=== PATIENT | male | born 1960 | race Caucasian/White ===

== ENCOUNTER 2018-05-31 18:22 | Emergency (ER) | payer BC ==
[2018-05-31 18:30] VITALS: PULSE 74; TEMP 97.7; BMI 29.0
--- NOTE | 2018-05-31 18:52 | PDOC ---
History of Present Illness - General Chief Complaint: Headache Stated Complaint: HEADACHE Time Seen by Provider: 05/31/18 18:44 History Source: Patient Exam Limitations: No Limitations - History of Present Illness Initial Comments: 05/31/18 18:45 57 year old man with prior history of migraine (age 10-13) who presents with 2 days of throbbing R sided headache around the eye and buddhist that onset 1 day ago while he was drilling a hole in his yard. The headache has been intermittent but the patient was able to sleep. This AM the patient has had decreased appetite and with worsening of the headache today at 1400. The patient 's headache worsens with bright lights and loud noises. He denies nausea, chest pain, diaphoresis. Denies tearing, runny nose or neck pain with the headache. Denies shortness of breath or fever. Denies recent travel, but notes possible sick contacts with his grandchildren. He reports his blood pressure is baseline 120/80s. Denies visual changes or ringing in the ears. Prior to arrival he took Sumatriptan at 4:30pm and 600 Ibuprofen at 5:45pm, with minimal relief as reported at 6:30pm. PCP: Marlo Past History - Past Medical History Allergies/Adverse Reactions: Allergies Allergy/AdvReac Type Severity Reaction Status Date / Time No Known Allergies Allergy Verified 05/31/18 18:25 Home Medications: Ambulatory Orders Ibuprofen 600 mg PO ASDIR 05/31/18 Sumatriptan Succinate [Imitrex] 100 mg PO ASDIR 05/31/18 Anemia: No COPD: No Other medical history: h/o migraine headaches - Immunization History Td Vaccination: (2009) - Suicide/Smoking/Psychosocial Hx Smoking Status: No Smoking History: Never smoked Have you smoked in the past 12 months: No Number of Cigarettes Smoked Daily: 0 Cigars Per Day: 0 Information on smoking cessation initiated: No Hx Alcohol Use: No Review of Systems - Review of Systems Able to Perform ROS?: Yes Is the patient limited Chadian proficient: No Constitutional: No: Chills, Diaphoresis, Fever HEENTM: No: Eye Pain, Blurred Vision, Tearing, Ear Pain, Nose Congestion, Tinnitus Respiratory: No: Cough, Orthopnea, Shortness of Breath Cardiac (ROS): No: Chest Pain, Palpitations, Syncope ABD/GI: No: Constipated, Diarrhea, Nausea, Vomiting : No: Burning, Dysuria, Hematuria Neurological: Yes: Headache. No: Numbness, Paresthesia, Tingling *Physical Exam - Vital Signs Last Vital Signs Temp Pulse Resp BP Pulse Ox 97.7 F 74 18 172/104 H 97 18 18:22 1218 18:22 1218 18:22 05/31/18 18:22 12 18:22 - Physical Exam Comments: GENERAL: Awake, alert, and fully oriented, in no acute distress HEAD: No signs of trauma, normocephalic, atraumatic EYES: PERRLA, EOMI, sclera anicteric, conjunctiva clear ENT: Auricles normal inspection, hearing grossly normal, nares patent, oropharynx clear without exudates. Moist mucosa NECK: Normal ROM, supple, no lymphadenopathy, JVD, or masses LUNGS: No distress, speaks full sentences, clear to auscultation bilaterally HEART: Regular rate and rhythm, normal S1 and S2, no murmurs, rubs or gallops, peripheral pulses normal and equal bilaterally. ABDOMEN: Soft, nontender, normoactive bowel sounds. No guarding, no rebound. No masses EXTREMITIES : Normal inspection, Normal range of motion, no edema. No clubbing or cyanosis. NEUROLOGICAL: Cranial nerves II through XII intact, cerebellar function intact. Normal speech, normal gait, no focal sensorimotor deficits SKIN: Warm, Dry, normal turgor, no rashes or lesions noted Moderate Sedation - Procedure Monitoring Vital Signs: Procedure Monitoring Vital Signs Temperature 97.7 F 05/31/18 18:22 Pulse Rate 74 05/31/18 18:22 Respiratory Rate 18 05/31/18 18:22 Blood Pressure 172/104 H 05/31/18 18:22 O2 Sat by Pulse Oximetry (%) 97 05/31/18 18:22 Medical Decision Making - Medical Decision Making 05/31/18 18:53 57 year old man with prior history of migraine (age 10-13) who presents with 2 days of throbbing R sided headache around the eye and buddhist that onset 1 day ago while he was drilling a hole in his year. The headache has been intermittent but the patient was able to sleep. This AM the patient has had decreased appetite and with worsening of the headache today at 1400. The patient 's headache worsens with bright lights and loud noises. He denies nausea, chest pain, diaphoresis. Denies tearing, runny nose or neck pain with the headache. Denies shortness of breath or fever. Denies recent travel, but notes possible sick contacts with his grandchildren. He reports his blood pressure is baseline 120/80s. Denies visual changes or ringing in the ears. ED Course: Patient history consistent with migraine with unilateral throbbing headache < 72 hours. Consider cervicogenic headache, tension headache. Will evaluate with EKG due to complaints of chest discomfort for the past 30- 40min. With elevation in BP from baseline will recheck. No neurological deficit concerning for stroke or brain bleed. Will observe and consider additional medications. 05/31/18 18:57 Repeat 138/83. 05/31/18 19:00 Patient signed out to oncoming team. Attending Dr. Joy. *DC/Admit/Observation/Transfer - Discharge Dispostion Condition at time of disposition: Stable - Referrals Referrals: Natalie Sellers MD [Primary Care Provider] - - Patient Instructions - Post Discharge Activity
[2018-05-31 19:00] VITALS: BP 138/86
--- NOTE | 2018-05-31 19:45 | PDOC ---
History of Present Illness - History of Present Illness Initial Comments: 05/31/18 19:46 The patient is a 57 year old male, who presents to the emergency department with right sided headache beginning approx 4 hours ago. The patient states the headache is located on the top right side of his head around the catholic/right eye, described as a squeezing pressure like pain, initially 9/10 in in pain but now 4/10 at presentation, exacerbated with light, with no alleviating factors. The patient states this is the worst headache he has had since he was a teenager. The patient states he took his wifes Sumatriptan medication around 3 pm with minimal relief. The patient states he then took 3 Advil approx 1 hour ago and decided to come to the ER for evaluation. The patient endorses feeling off this week and intermittent neck stiffness while trying to get comfortable in bed. The patient states he had an eye exam yesterday s/p having Lasik surgery 17 years ago and had his eyes dilated. Denies any numbness, tingling or loss of sensation. Denies any weakness. Denies any slurred speech. Denies any blurry vision or visual changes. Denies any confusion. The patient denies chest pain, shortness of breath, and dizziness. Denies fever, chills, nausea, vomit, diarrhea and constipation. Denies dysuria, frequency, urgency and hematuria. PAST MEDICAL HISTORY: Migraines PAST SURGICAL HISTORY: no significant history FAMILY HISTORY: no pertinent history SOCIAL HISTORY: Pt lives with family and is employed. MEDICATIONS: reviewed ALLERGIES: As per nursing notes Review of Systems General: No fevers or chills, no weakness, no weight loss HEENT: No change in vision. No sore throat,. No ear pain CardioVascular: No chest pain or shortness of breath Respiratory:No cough, or wheezing. Gastrointestinal: no nausea, vomiting, diarrhea or constipation, No rectal bleeding Genitourinary: No dysuria, hematuria, or frequency Musculoskeletal: No joint or muscle pain or swelling Neurologic: (+) Headache. No vertigo, dizziness or loss of consciousness Psychiatric: nor depression Skin: No rashes or easy bruising Endocrine: no increased thirst or abnormal weight change Allergic: no skin or latex allergy All other systems reviewed and normal Physical Exam GENERAL: The patient is awake, alert, and fully oriented, in no acute distress. HEAD: Normal with no signs of trauma. EYES: Pupils equal, round and reactive to light, extraocular movements intact, sclera anicteric, conjunctiva clear. EXTREMITIES: Normal range of motion, no edema. PSYCH: Normal mood, normal affect. SKIN: Warm, Dry, normal turgor, no rashes or lesions noted. NEURO: Mental status: The patient alert and is oriented x3. Cranial nerves: Cranial nerves II through XII are intact Fundoscopic exam normal Motor: The upper extremities are 5 over 5 in all muscle groups. The lower extremities are 5 over 5 in all muscle groups. Sensation: Sensation is intact to light touch throughout. Cerebellar: Krxoxf-[id number] is normal in both upper extremities. Heel-knee- bishop is normal in both lower extremities. Gait: Normal. Heel and toe walking are normal. Tandem gait is normal. <Akshat Chatterjee - Last Filed: 05/31/18 19:46> - General History Source: Patient Exam Limitations: No Limitations - History of Present Illness Initial Comments: 05/31/18 19:42 A portion of this note was documented by scribe services under my direction. I have reviewed the details of the note, within reason, and agree with the documentation with the following case summary and management plan written by me. Patient treated in the ED. Nursing notes are reviewed and incorporated into the medical decision-making. Vital signs reviewed. Assessment and plan: This is a 57-year-old male who comes in complaining of worst headache of his life. Patient said headache is right-sided throbbing in nature. Patient some of his 's sumatriptan and then 600 mg of Motrin. Headache did not improve with the sumatriptan but did improve with the Motrin and it is now a 4 out of 10 at its onset it was a 9 out of 10. Patient denied any associated symptoms other than he says he doesn't feel right. Patient denied any fevers, nausea, vomiting. On exam there is no tenderness on palpation over the temporal artery and there is no meningeal signs. Workup obtained including head CT and patient is seen initially by the medical apparatus model maker and she ordered an EKG. However patient denied any chest pain, shortness of breath or associated cardiac symptoms. EKG shows an incomplete right bundle branch block otherwise normal 05/31/18 20:[address] was negative for any acute pathology. Patient given Toradol and Reglan for the headache and discharged home. <ClaridgeWeisse,Joanette I - Last Filed: 05/31/18 20:44> - General Chief Complaint: Headache Stated Complaint: HEADACHE Time Seen by Provider: 05/31/18 18:44 Past History <Akshat Chatterjee - Last Filed: 05/31/18 19:46> - Past Medical History Anemia: No COPD: No Other medical history: h/o migraine headaches - Immunization History Td Vaccination: (2009) - Suicide/Smoking/Psychosocial Hx Smoking Status: No Smoking History: Never smoked Have you smoked in the past 12 months: No Number of Cigarettes Smoked Daily: 0 Cigars Per Day: 0 Information on smoking cessation initiated: No Hx Alcohol Use: No <Tristian Pyle I - Last Filed: 05/31/18 20:44> - Past Medical History Allergies/Adverse Reactions: Allergies Allergy/AdvReac Type Severity Reaction Status Date / Time No Known Allergies Allergy Verified 05/31/18 18:25 Home Medications: Ambulatory Orders Ibuprofen 600 mg PO ASDIR 05/31/18 Sumatriptan Succinate [Imitrex] 100 mg PO ASDIR 05/31/18 Review of Systems - Review of Systems Is the patient limited Yoruba proficient: No <Tristian Pyle I - Last Filed: 05/31/18 20:44> *Physical Exam - Vital Signs Last Vital Signs Temp Pulse Resp BP Pulse Ox 97.7 F 74 18 138/86 97 05/31/18 18:22 05/31/18 18:22 05/31/18 18:22 05/31/18 19:00 05/31/18 18:22 <Akshat Chatterjee - Last Filed: 05/31/18 19:46> - Vital Signs Last Vital Signs Temp Pulse Resp BP Pulse Ox 97.7 F 74 18 138/86 97 05/31/18 18:22 05/31/18 18:22 05/31/18 18:22 05/31/18 19:00 05/31/18 18:22 <Tristian Pyle I - Last Filed: 05/31/18 20:44> Moderate Sedation - Procedure Monitoring Vital Signs: Procedure Monitoring Vital Signs Temperature 97.7 F 05/31/18 18:22 Pulse Rate 74 05/31/18 18:22 Respiratory Rate 18 05/31/18 18:22 Blood Pressure 138/86 05/31/18 19:00 O2 Sat by Pulse Oximetry (%) 97 05/31/18 18:22 <Akshat Chatterjee - Last Filed: 05/31/18 19:46> - Procedure Monitoring Vital Signs: Procedure Monitoring Vital Signs Temperature 97.7 F 05/31/18 18:22 Pulse Rate 74 05/31/18 18:22 Respiratory Rate 18 05/31/18 18:22 Blood Pressure 138/86 05/31/18 19:00 O2 Sat by Pulse Oximetry (%) 97 05/31/18 18:22 <Tristian Pyle I - Last Filed: 05/31/18 20:44> ED Treatment Course - RADIOLOGY Radiology Studies Ordered: Category Date Time Status HEAD CT WITHOUT CONTRAST [CT] Stat CT Scan 05/31/18 19:28 Ordered <Tristian Pyle I - Last Filed: 05/31/18 20:44> *DC/Admit/Observation/Transfer - Attestations Scribe Attestion: 05/31/18 19:46 Documentation prepared by Akshat Chatterjee, acting as esthetician and manager medical spa for Tristian Pyle MD. <Akshat Chatterjee - Last Filed: 05/31/18 19:46> - Discharge Dispostion Decision to Admit order: No <Tristian Pyle I - Last Filed: 05/31/18 20:44> Diagnosis at time of Disposition: Headache Qualifiers: Headache type: unspecified Headache chronicity pattern: acute headache Intractability: not intractable Qualified Code(s): R51 - Headache - Discharge Dispostion Disposition: HOME Condition at time of disposition: Stable - Referrals Referrals: Natalie Sellers MD [Primary Care Provider] - - Patient Instructions Additional Instructions: Tylenol or Motrin as needed for the pain Return to the emergency department immediately with ANY new, persistent or worsening symptoms. Continue any medications as previously prescribed by your physician. You should follow up with your primary doctor as soon as possible regarding today's emergency department visit. . Please make sure your doctor reviews the results of your emergency evaluation. Thank you for coming to the Emergency Department today for your care. It was a pleasure to see you today. Please note that your evaluation is INCOMPLETE until you follow-up with your doctor. - Post Discharge Activity
[2018-05-31] MEDS ORDERED: METOCLOPRAMIDE HCL 10 MG TABLET (FP) PO ONE ×2 (20:41→20:45)
[2018-05-31] MEDS ORDERED: KETOROLAC TROMETHAMINE 60 MG/2 ML VIAL IM ONE (20:41)
[2018-05-31] MEDS ORDERED: KETOROLAC TROMETHAMINE 60 MG/2 ML VIAL ONE (20:45)
--- NOTE | 2018-06-01 11:23 | EKG ---
Test Reason : Blood Pressure : / mmHG Vent. Rate : 071 BPM Atrial Rate : 071 BPM P-R Int : 156 ms QRS Dur : 106 ms QT Int : 398 ms P-R-T Axes : 015 088 043 degrees QTc Int : 432 ms NORMAL SINUS RHYTHM INCOMPLETE RIGHT BUNDLE BRANCH BLOCK BORDERLINE ECG NO PREVIOUS ECGS AVAILABLE Confirmed by KATARZYNA WILL MD ([id number]) on 06/01/2018 11:22:50 AM Referred By: DR PEREA Confirmed By:KATARZYNA WILL MD
== END 2018-05-31 20:55 | disposition home or self-care (01) ==
LOC: FER 18:22
PROC: 3E0233Z Introduction of Anti-inflammatory into Muscle, Percutaneous Approach (ICD-10-PCS; principal; 2018-05-31)
DX: R51 Headache (principal)
CPT/HCPCS: 70450-TC; 93005; 99283-25